=== PATIENT | male | born 1960 | race Caucasian/White ===

== ENCOUNTER 2017-10-18 14:53 | Outpatient (RCR) | payer BC ==
[~2017-10-18 14:53] MED LIST: ADVIL PO; CELEBREX200 MG PO; GABAPENTIN300 MG PO; LANTUS100 UNIT/1 PO; LISINOPRIL10 MG PO; SIMVASTATIN20 MG PO; SIMVASTATIN40 MG PO; [UNRECOGNIZED DRUG - OTHER] PO
== END 2017-10-30 ==
LOC: PT 14:53
PROVIDERS: ATTEND Neurological Surgery
DX: M51.17 Intervertebral disc disorders with radiculopathy, lumbosacral region (principal); M62.81 Muscle weakness (generalized)

== ENCOUNTER 2018-12-30 20:07 | Observation (INO) | payer BC ==
[~2018-12-30] VITALS: Ht 172.7 cm; Wt 97.5 kg
[2018-12-30 20:00] VITALS: BP 159/72
[2018-12-30 20:15] VITALS: BP 159/72
--- NOTE | 2018-12-30 20:15 | NUR ---
patient is a new admit that arrived via wheelchair. patient is alert and oriented. patient has been helped into the bed. bed is in lowest position and call alberto is within reach. will continue to monitor patient.
[2018-12-31] VITALS (8 sets, daily range): BP systolic 121–182; BP diastolic 59–84
[2018-12-31] MEDS ORDERED: METFORMIN HCL500 MG PO (00:34)
[2018-12-31] MEDS ORDERED: ATORVASTATIN CA20 MG PO (00:34)
[2018-12-31 06:26] LABS: BASOPHILS % 0.5 % (0.0-1.0); EOSINOPHILS # (AUTO) 0.2 (0.0-0.4); EOSINOPHILS % 3.1 % (0.0-6.0); HEMATOCRIT 46.1 % (38.2-49.6); HEMOGLOBIN 15.8 g/dL (14.0-18.0); LYMPHOCYTES # (AUTO) 2.3 (1.0-3.2); LYMPHOCYTES % 36.5 % (18.0-39.1); MEAN CORPUSCULAR HEMOGLOBIN 31.7 pg (28-32); MEAN CORPUSCULAR HGB CONC 34.3 g/dL (31-35); MEAN CORPUSCULAR VOLUME 92.4 fL (81-99); MONOCYTES # (AUTO) 0.5 (0.2-0.8); MONOCYTES % 8.3 % (4.4-11.3); NEUTROPHILS # (AUTO) 3.3 (2.1-6.9); NEUTROPHILS % 51.4 % (38.7-80.0); PLATELET COUNT 234 x10e3/uL (140-360); RED BLOOD COUNT 4.99 x10e6/uL (4.3-5.7); RED CELL DISTRIBUTION WIDTH 13.2 % (11.7-14.4)
--- NOTE | 2018-12-31 06:26 | NUR ---
Dr Blayne Moss has been notified of consultation via voice message. Awaiting call back from physician.
[2018-12-31 06:52] LABS: ALANINE AMINOTRANSFERASE 26 IU/L (0-55); ALBUMIN 3.7 g/dL (3.5-5.0); ALBUMIN/GLOBULIN RATIO 1.4 (0.8-2.0); ALKALINE PHOSPHATASE 82 IU/L (40-150); ANION GAP 9.9 mmol/L (8-16); BLOOD UREA NITROGEN 16 mg/dL (7-26); BUN/CREATININE RATIO 20 (6-25); CALCIUM 8.6 mg/dL (8.4-10.2); CARBON DIOXIDE 27 mmol/L (22-29); CHLORIDE 105 mmol/L (98-107); CREATININE, SERUM 0.79 mg/dL (0.72-1.25); EST GLOMERULAR FILTRATION RATE > 60 ML/MIN (60-); GLUCOSE 181 mg/dL (74-118); POTASSIUM 3.9 mmol/L (3.5-5.1); SODIUM 138 mmol/L (136-145)
--- NOTE | 2018-12-31 06:54 | NUR ---
report given to day nurse. patient is resting comfortably in bed. bed is in lowest position and call alberto is within reach.
--- NOTE | 2018-12-31 07:50 | NUR ---
patient resting in bed, alert with no distress, denies any pain, call light in reach
[2018-12-31] MEDS: LISINOPRIL 10 MG TAB PO SCH (08:04)
[2018-12-31] MEDS: GABAPENTIN 300 MG CAP PO SCH ×2 (08:04→16:34)
[2018-12-31] MEDS: INSULIN GLARGINE 100 UNITS/ML VIAL SQ SCH (08:22)
--- NOTE | 2018-12-31 08:50 | NUR ---
Recvd call from Dr Cisneros that "She is out of town till Tuesday' Notified Catina LOBO when she was here for rounds.
[2018-12-31] MEDS ORDERED: NICOTINE 14 MG/EA PATCH TOP PRN (09:30)
[2018-12-31] MEDS ORDERED: ACETAMINOPHEN 325 MG TAB PO PRN (09:30)
[2018-12-31] MEDS ORDERED: ONDANSETRON HCL INJ 2MG/ML 2ML 2 MG/ML VIAL IV PRN (09:30)
[2018-12-31] MEDS ORDERED: GADOBENATE DIMEGLUMINE 0 ML IV ONE (09:50)
[2018-12-31] MEDS ORDERED: AMLODIPINE BESYLATE 10 MG TAB PO SCH (10:00)
[2018-12-31] MEDS ORDERED: LORAZEPAM INJ 2 MG/ML VIAL IV PRN (10:30)
--- NOTE | 2018-12-31 10:35 | NUR ---
patient in MRI unit, anxious . claustrophobic, new order recvd from PA of Dr Brice ativan 1mg one dose, dose given
--- NOTE | 2018-12-31 11:17 | NUR ---
patient still anxious, could not able to get MRI, paged Catina [employer] TECH[employer], new order recvd to give another dose of ativan 1mg IV, DOSE given
[2018-12-31] MEDS ORDERED: LORAZEPAM INJ 2 MG/ML VIAL IV ONE (11:30)
--- NOTE | 2018-12-31 14:11 | NUR ---
Patient walking in hallway, not in any distress
[2018-12-31] MEDS: HYDRALAZINE HCL 20 MG/ML VIAL IV PRN (15:23)
[2018-12-31] MEDS: FAMOTIDINE 20 MG TAB PO SCH (16:34)
[2018-12-31] MEDS: INSULIN LISPRO 100 UNIT/1 ML 3ML VIAL SQ SCH ×2 (16:50→20:29)
[2018-12-31] MEDS ORDERED: METFORMIN HCL 500 MG TAB PO SCH (17:00)
--- NOTE | 2018-12-31 18:04 | Diagnostic Imaging Report ---
EXAMINATION: MRI of the brain without contrast. HISTORY: Upper and lower extremity weakness since the day before, patient fell off a couple of times, abnormal head CT. COMPARISON: Outside head CT on 12/30/2018 TECHNIQUE: Sagittal T2; axial DWI, T2, FLAIR, T1-IR. IMAGE QUALITY: Artifact from patient's motion severally limits evaluation of most of the sequences. FINDINGS: Parenchyma: 1. No acute infarct. 2. Poorly visualized periventricular and subcortical white matter FLAIR hyperintense foci. 3. Possible chronic lacunar infarct in the left posterior putamen. 4. No large mass, hemorrhage, or acute infarcts. Skull: Unremarkable. Vessels: Cannot be evaluated Extra-axial spaces: Grossly normal extra-axial fluid collections Brain volume: Within normal limits for age. Ventricles: No hydrocephalus or displacement. Foramen magnum: Unremarkable. Paranasal / mastoid sinuses: No significant inflammatory disease. IMPRESSION: 1. Very suboptimal evaluation due to patient's motion. Grossly no mass, acute infarct, hemorrhage or hydrocephalus. 2. Few nonspecific periventricular and juxtacortical white matter FLAIR hyperintense foci, consider repeat study when patient conditions allow to the better evaluate. Signed by: Dr. Beverley Garcia M.D. on 12/31/2018 6:01 PM
--- NOTE | 2018-12-31 18:26 | NUR ---
patient resting in bed, alert with no distress, call light in reach
--- NOTE | 2018-12-31 19:00 | NUR ---
received report from day nurse. patient is resting in bed. bed is in lowest position and call alberto is within reach. will continue to monitor patient.
[2018-12-31] MEDS: ATORVASTATIN 20 MG TAB PO SCH (20:33)
[2018-12-31] MEDS ORDERED: SIMVASTATIN 40 MG TAB PO SCH (21:00)
[2019-01-01] VITALS (10 sets, daily range): BP systolic 153–176; BP diastolic 68–84
[2019-01-01 03:06] LABS: BASOPHILS % 0.5 % (0.0-1.0); EOSINOPHILS # (AUTO) 0.2 (0.0-0.4); EOSINOPHILS % 2.5 % (0.0-6.0); HEMATOCRIT 49.6 % (38.2-49.6); HEMOGLOBIN 17.3 g/dL (14.0-18.0); LYMPHOCYTES # (AUTO) 2.6 (1.0-3.2); LYMPHOCYTES % 35.5 % (18.0-39.1); MEAN CORPUSCULAR HEMOGLOBIN 31.9 pg (28-32); MEAN CORPUSCULAR HGB CONC 34.9 g/dL (31-35); MEAN CORPUSCULAR VOLUME 91.3 fL (81-99); MONOCYTES # (AUTO) 0.6 (0.2-0.8); MONOCYTES % 7.7 % (4.4-11.3); NEUTROPHILS # (AUTO) 3.9 (2.1-6.9); NEUTROPHILS % 53.5 % (38.7-80.0); PLATELET COUNT 224 x10e3/uL (140-360); RED BLOOD COUNT 5.43 x10e6/uL (4.3-5.7); RED CELL DISTRIBUTION WIDTH 13.1 % (11.7-14.4)
[2019-01-01 03:24] LABS: ANION GAP 10.9 mmol/L (8-16); BLOOD UREA NITROGEN 13 mg/dL (7-26); BUN/CREATININE RATIO 19 (6-25); CALCIUM 9.1 mg/dL (8.4-10.2); CARBON DIOXIDE 26 mmol/L (22-29); CHLORIDE 102 mmol/L (98-107); CHOL/HDL RATIO 3.8 (3.9-4.7); CREATININE, SERUM 0.69 mg/dL (0.72-1.25); EST GLOMERULAR FILTRATION RATE > 60 ML/MIN (60-); GLUCOSE 108 mg/dL (74-118); POTASSIUM 3.9 mmol/L (3.5-5.1); SODIUM 135 mmol/L (136-145)
[2019-01-01 03:35] LABS: B-TYPE NATRIURETIC PEPTIDE2 27.7 pg/mL (0-100)
[2019-01-01 03:46] LABS: FREE T4 (FREE THYROXINE) 0.79 ng/dL (0.9-1.8)
--- NOTE | 2019-01-01 05:40 | NUR ---
patient's 20 gauge IV is no longer patent. a new 22gauge iv has been started on patient's left hand. iv is patent and patient tolerated procedure well.
[2019-01-01] MEDS: HYDRALAZINE HCL 20 MG/ML VIAL IV PRN ×3 (06:15→17:00)
--- NOTE | 2019-01-01 06:15 | NUR ---
patients blood pressure is 168/83. will medicate patient with as needed blood pressure medication. will continue to monitor patient's blood pressure.
--- NOTE | 2019-01-01 07:11 | NUR ---
report given to day nurse. patient is resting comfortably in bed. bed is in lowest position and call alberto is within reach.
[2019-01-01] MEDS ORDERED: NIFEDIPINE ER30 M1 PO (08:07)
[2019-01-01] MEDS: FAMOTIDINE 20 MG TAB PO SCH ×2 (08:51→17:00)
[2019-01-01] MEDS: GABAPENTIN 300 MG CAP PO SCH ×2 (08:51→17:00)
[2019-01-01] MEDS: LISINOPRIL 10 MG TAB PO SCH (08:51)
[2019-01-01] MEDS: INSULIN GLARGINE 100 UNITS/ML VIAL SQ SCH (08:55)
[2019-01-01] MEDS: INSULIN LISPRO 100 UNIT/1 ML 3ML VIAL SQ SCH ×4 (08:56→20:58)
[2019-01-01] MEDS ORDERED: NIFEDIPINE CR 30 MG TAB PO SCH (09:00)
[2019-01-01] MEDS ORDERED: AMLODIPINE BESYLATE 10 MG TAB PO SCH (09:00)
--- NOTE | 2019-01-01 14:37 | NUR ---
spoke with fuel retrofitting technician kenny regarding elevated bp despite prn hydralazine administration. fuel retrofitting technician cancelled dc, new orders received
[2019-01-01] MEDS ORDERED: HYDROCHLOROTHIAZIDE 25 MG TAB PO NR (15:00)
[2019-01-01] MEDS: LORAZEPAM 0.5 MG TAB PO PRN (17:00)
[2019-01-01] MEDS ORDERED: ACETAMIN/BUTALBITAL/CAFFEINE TAB PO PRN (21:00)
[2019-01-01] MEDS: HYDRALAZINE HCL 25 MG TAB PO SCH (21:08)
[2019-01-01] MEDS: ATORVASTATIN 20 MG TAB PO SCH (21:09)
[2019-01-02] VITALS (7 sets, daily range): BP systolic 137–176; BP diastolic 59–77
[2019-01-02] MEDS: LORAZEPAM 0.5 MG TAB PO PRN ×2 (03:54→11:32)
--- NOTE | 2019-01-02 07:20 | NUR ---
Walking rounds done. Patient is resting in bed in NAD. Patient voiced he is ready to go home today. POC discussed. Patient instructed to call for assistance as needed and verbalized understanding. Call alberto within reach.
[2019-01-02] MEDS ORDERED: ATIVAN0.5 MG PO (08:42)
[2019-01-02] MEDS ORDERED: LISINOPRIL20 MG PO (08:42)
[2019-01-02] MEDS ORDERED: ESIDRIX25 MG PO (08:42)
[2019-01-02] MEDS ORDERED: HYDRALAZINE HCL25 MG PO (08:42)
[2019-01-02] MEDS ORDERED: NIFEDIPINE ER30 M1 PO (08:42)
[2019-01-02] MEDS: FAMOTIDINE 20 MG TAB PO SCH ×2 (08:57→17:09)
[2019-01-02] MEDS: INSULIN LISPRO 100 UNIT/1 ML 3ML VIAL SQ SCH ×3 (08:58→16:30)
[2019-01-02] MEDS: INSULIN GLARGINE 100 UNITS/ML VIAL SQ SCH (08:59)
[2019-01-02] MEDS: GABAPENTIN 300 MG CAP PO SCH ×2 (09:00→17:09)
[2019-01-02] MEDS ORDERED: LISINOPRIL 20 MG TAB PO SCH (09:00)
[2019-01-02] MEDS: HYDRALAZINE HCL 25 MG TAB PO SCH ×2 (09:00→15:13)
[2019-01-02] MEDS ORDERED: HYDROCHLOROTHIAZIDE 25 MG TAB PO SCH (09:00)
[2019-01-02] MEDS ORDERED: NIFEDIPINE CR 30 MG TAB PO SCH (09:00)
[2019-01-02] MEDS ORDERED: LISINOPRIL 10 MG TAB PO SCH (09:00)
--- NOTE | 2019-01-02 10:22 | NUR ---
SOCIAL WORK INITIAL ASSESSMENT Aviation Engineer to bedside to discuss plan of care with patient/family. CM/SW role and care transitions discussed. Anticipated discharge plan discussed along with duration of care. CM/SW discussed patients right to make decisions in care. CM/SW work hours given. 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 Name and number was also written on the patients whiteboard. Patient verbalized understanding of discussion. CM will follow-up with ongoing discharge and transition of care needs.
--- NOTE | 2019-01-02 17:55 | NUR ---
Patient discharged home with written instructions and prescriptions. Pt verbalized understanding. Patient wheeled to personal vehicle in stable condition with spouse at side.
--- NOTE | 2019-01-03 03:18 | Discharge Summary ---
ADMISSION DIAGNOSES: Dizziness, type 2 diabetes, hypertension, hyperlipidemia, and tobacco use. DISCHARGE DIAGNOSES: Dizziness, type 2 diabetes, hypertension, hyperlipidemia, and tobacco use. HISTORY: The patient has a history of type 2 diabetes, chronic back pain, and hypertension. SURGICAL HISTORY: Right knee surgery, left elbow surgery, bilateral carpal tunnel release. FAMILY HISTORY: The patient's dad and sister have diabetes. SOCIAL HISTORY: The patient admits to smoking 1 to 1-1/2 packs of cigarettes per day. He denies alcohol and illicit drug use. HOSPITAL COURSE: A 58-year-old male complains of feeling weird, dizziness, and bilateral lower extremity weakness that began yesterday while at [employer]. The symptoms lasted about an hour and resolved spontaneously. Nothing improved or worsened his symptoms. His blood pressure in the morning was about 148/82. He denies shortness of breath, palpitations, or syncope. The patient initially went to an outpatient ER and had a CAT scan that showed posterior left frontal lobe hypodense lesion. He then had an MRI that showed very suboptimal evaluation due to the patient's motion, grossly no mass, acute infarct, hemorrhage, or hydrocephalus. The patient's echo had an EF of about 50%. Carotid Dopplers were negative. The patient remained hypertensive despite blood pressure medicine, so he had to stay in the hospital until it was well controlled. At the time of discharge, the patient was given a script for hydralazine, hydrochlorothiazide, lisinopril, lorazepam, and nifedipine. The patient will continue home medicines. He will follow up with primary care in 1-2 weeks. The patient understands discharge instructions and agrees to plan. Vital signs stable, the patient afebrile. Dictated by Catina Heart NP MD ENID Vasquez/BERT /[id number]
== END 2019-01-02 17:35 | disposition home or self-care (01) ==
LOC: IMCU 20:07
PROVIDERS: ADMIT Internal Medicine; ATTEND Internal Medicine
DX: R42 Dizziness and giddiness (principal); E11.9 Type 2 diabetes mellitus without complications; I10 Essential (primary) hypertension; E78.5 Hyperlipidemia, unspecified; Z72.0 Tobacco use; Z83.3 Family history of diabetes mellitus; Z79.4 Long term (current) use of insulin
CPT/HCPCS: 36415 ×3; 70551; 80048; 80053; 80061; 82948 ×3; 83036; 83735; 83880; 84439; 84443; 85025 ×2; 93306; 93880; 97139; G0378 ×4; J0360 ×2; J1815; J2060

== ENCOUNTER 2019-01-15 13:04 | Observation (INO) | payer BC ==
[~2019-01-15] VITALS: Ht 167.6 cm; Wt 89.8 kg
[~2019-01-15 13:04] MED LIST changes: +ATIVAN0.5 MG PO; +ATORVASTATIN CA20 MG PO; +ESIDRIX25 MG PO; +HYDRALAZINE HCL25 MG PO; +LISINOPRIL20 MG PO; +METFORMIN HCL500 MG PO; +NIFEDIPINE ER30 M1 PO
[2019-01-15] MEDS ORDERED: SODIUM CHLORIDE 0.9% 1000ML 1,000 ML IV STA (13:31)
[2019-01-15 13:41] LABS: BASOPHILS # (AUTO) 0.1 (0.0-0.1); BASOPHILS % 0.7 % (0.0-1.0); EOSINOPHILS # (AUTO) 0.4 (0.0-0.4); EOSINOPHILS % 4.2 % (0.0-6.0); HEMATOCRIT 42.7 % (38.2-49.6); HEMOGLOBIN 15.2 g/dL (14.0-18.0); LYMPHOCYTES # (AUTO) 3.6 (1.0-3.2); LYMPHOCYTES % 39.2 % (18.0-39.1); MEAN CORPUSCULAR HEMOGLOBIN 31.9 pg (28-32); MEAN CORPUSCULAR HGB CONC 35.6 g/dL (31-35); MEAN CORPUSCULAR VOLUME 89.5 fL (81-99); MONOCYTES # (AUTO) 0.6 (0.2-0.8); MONOCYTES % 6.4 % (4.4-11.3); NEUTROPHILS # (AUTO) 4.5 (2.1-6.9); PLATELET COUNT 287 x10e3/uL (140-360); RED BLOOD COUNT 4.77 x10e6/uL (4.3-5.7); RED CELL DISTRIBUTION WIDTH 12.4 % (11.7-14.4)
--- NOTE | 2019-01-15 13:43 | NUR ---
PATIENT STATED HE FELT FINE YESTERDAY. DID YARD WORK AND PUT OUT PESTICIDES YESTERDAY. TODAY HE CONTINUALLY STATES, "I JUST DONT FEEL RIGHT"
[2019-01-15 13:45] LABS: INR 0.92; PROTHROMBIN TIME 12.9 seconds (11.9-14.5)
[2019-01-15 13:46] LABS: PARTIAL THROMBOPLASTIN TIME 25.3 seconds (23.8-35.5)
[2019-01-15 13:52] LABS: ALANINE AMINOTRANSFERASE 39 IU/L (0-55); ALBUMIN 3.9 g/dL (3.5-5.0); ALBUMIN/GLOBULIN RATIO 1.3 (0.8-2.0); ALKALINE PHOSPHATASE 91 IU/L (40-150); ANION GAP 15.9 mmol/L (8-16); BLOOD UREA NITROGEN 20 mg/dL (7-26); BUN/CREATININE RATIO 21 (6-25); CALCIUM 8.9 mg/dL (8.4-10.2); CARBON DIOXIDE 27 mmol/L (22-29); CHLORIDE 98 mmol/L (98-107); CREATINE KINASE 637 IU/L (30-200); CREATININE, SERUM 0.94 mg/dL (0.72-1.25); EST GLOMERULAR FILTRATION RATE > 60 ML/MIN (60-); GLUCOSE 175 mg/dL (74-118); POTASSIUM 3.9 mmol/L (3.5-5.1); SODIUM 137 mmol/L (136-145)
--- NOTE | 2019-01-15 14:11 | Diagnostic Imaging Report ---
History:AMS Comparison studies:MRI brain 12/31/2018 Technique: Axial images were obtained from the skull base to the vertex. Coronal and sagittal images reconstructed from the axial data. Intravenous contrast: None Dose modulation, iterative reconstruction, and/or weight based adjustment of the mA/kV was utilized to reduce the radiation dose to as low as reasonably achievable. Findings: Scalp/skull: No abnormalities. Extra-axial spaces: No masses. No fluid collections. Brain sulci: Age-appropriate. Ventricles: Age-appropriate. No hydrocephalus. Parenchyma: Scattered small hypodensities in the supratentorial white matter are small vessel ischemic changes. No masses, hemorrhage, acute or chronic cortical vascular insults. Sellar/suprasellar region: No abnormalities. Craniocervical junction: Patent foramen magnum. No Chiari one malformation. Incidental findings: Atherosclerotic calcifications in the carotid siphons . Impression: No acute abnormalities. Mild supratentorial white matter small vessel ischemic changes. Signed by: DR Nomi Selby M.D. on 01/15/2019 2:07 PM
--- NOTE | 2019-01-15 14:38 | Diagnostic Imaging Report ---
EXAM: CHEST SINGLE (PORTABLE), AP Portable DATE: 01/15/2019 Time stamp on exam: 1:52 PM INDICATION: Weakness COMPARISON: None FINDINGS: LINES/TUBES: None LUNGS: No consolidations or edema. PLEURA: No effusions or pneumothorax. HEART AND MEDIASTINUM: Normal size and contour. BONES AND SOFT TISSUES: No acute findings. Mild degenerative changes of the spine. IMPRESSION: No acute thoracic abnormality. Signed by: Dr. Kushal Peck DO on 01/15/2019 2:34 PM
[2019-01-15] MEDS ORDERED: ACETAMINOPHEN 325 MG TAB PO ONE (15:30)
[2019-01-15] MEDS ORDERED: LORAZEPAM1 MG PO (15:35)
[2019-01-15] MEDS ORDERED: HYDRALAZINE HCL25 MG PO (15:35)
[2019-01-15] MEDS ORDERED: ASPIRIN 325 MG TAB PO ONE (16:30)
--- OUTSIDE RECORDS SUMMARY | 2019-01-15 16:44 | XMS REPORT ---
Author Author [facility] Address Unknown Phone Unavailable Care Team Providers Care Coil Rewind Machine Operator Name Role Phone Crow FLORES Unavailable Unavailable KELLE MUELLER Unavailable Unavailable MANUELA GARCIA Unavailable Unavailable Problems This patient has no known problems. Allergies, Adverse Reactions, Alerts This patient has no known allergies or adverse reactions. Medications This patient has no known medications. Results Test Description Test Time Test Comments Text Results Atomic Results Result Comments CHEST SINGLE (PORTABLE) 2019-01-15 14:34:00 [place] [address] Patient Name: RUSTY ESCOBAR MR #: [id number] : 1960 Age/Sex: 58/M Req #: [id number] Adm Physician: Ordered by: INDERJIT FLORES MD Report #: [id number] Location: ER Room/Bed: Procedure: [id number] DX/CHEST SINGLE (PORTABLE) Exam Date: 01/15/19 Exam Time: 1340 REPORT STATUS: Signed EXAM: CHEST SINGLE (PORTABLE), AP Portable DATE: 01/15/2019 Time stamp on exam: 1:52 PM INDICATION: Weakness COMPARISON: None FINDINGS: LINES/TUBES: None LUNGS: No consolidations or edema. PLEURA: No effusions or pneumothorax. HEART AND MEDIASTINUM: Normal size and contour. BONES AND SOFT TISSUES: No acute findings. Mild degenerative changes of the spine. IMPRESSION: No acute thoracic abnormality. Signed by: Dr. Vishnu Peck DO on 01/15/2019 2:34 PM Dictated By: VISHNU PECK DO 1434 Transcribed By: MEGAN on 01/15/19 1434 COPY TO: INDERJIT FLORES MD CT BRAIN WO 2019-01-15 14:04:00 [place] [address] Patient Name: RUSTY ESCOBAR MR #: [id number] : 1960 Age/Sex: 58/M Req #: [id number] Adm Physician: Ordered by: INDERJIT FLORES MD Report #: [id number] Location: ER Room/Bed: Procedure: [id number] CT/CT BRAIN WO Exam Date: 01/15/19 Exam Time: 1300 REPORT STATUS: Signed History:AMS Comparison studies:MRI brain 12/31/2018 Technique: Axial images were obtained from the skull base to the vertex. Coronal and sagittal images reconstructed from the axial data. Intravenous contrast: None Dose modulation, iterative reconstruction, and/or weight based adjustment of the mA/kV was utilized to reduce the radiation dose to as low as reasonably achievable. Findings: Scalp/skull: No abnormalities. Extra-axial spaces: No masses. No fluid collections. Brain sulci: Age-appropriate. Ventricles: Age-appropriate. No hydrocephalus. Parenchyma: Scattered small hypodensities in the supratentorial white matter are small vessel ischemic changes. No masses, hemorrhage, acute or chronic cortical vascular insults. Sellar/suprasellar region: No abnormalities. Craniocervical junction: Patent foramen magnum. No Chiari one malformation. Incidental findings: Atherosclerotic calcifications in the carotid siphons . Impression: No acute abnormalities. Mild supratentorial white matter small vessel ischemic changes. Signed by: DR Nomi Selby M.D. on 01/15/2019 2:07 PM Dictated By: NOMI NOEL MD 06 Transcribed By: MEGAN on 01/15/191406 COPY TO: INDERJIT FLORES MD MRI BRAIN WO 2018-12-31 17:54:00 [place] [address] Patient Name: RUSTY REARDON MR #: [id number] : 1960 Age/Sex: 58/M Req #: [id number] Adm Physician: KELLE MUELLER MD Ordered by: KELLE MUELLER MD Report #: [id number] Location: [facility] Room/Bed: [place] [address] Procedure: [id number] MRI/MRI BRAIN WO Exam Date: Exam Time: REPORT STATUS: Signed EXAMINATION: MRI of the brain without contrast. HISTORY: Upper and lower extremity weakness since the day before, patient fell off a couple of times, abnormal head CT. COMPARISON: Outside head CT on 12/30/2018 TECHNIQUE: Sagittal T2; axial DWI, T2, FLAIR, T1-IR. IMAGE QUALITY: Artifact from patient's motion severally limits evaluation of most of the sequences. FINDINGS: Parenchyma: 1. No acute infarct. 2. Poorly visualized periventricular and subcortical white matter FLAIR hyperintense foci. 3. Possible chronic lacunar infarct in the left posterior putamen. 4. No large mass, hemorrhage, or acute infarcts. Skull: Unremarkable. Vessels: Cannot be evaluated Extra-axial spaces: Grossly normal extra- axial fluid collections Brain volume: Within normal limits for age. Ventricles: No hydrocephalus or displacement. Foramen magnum: Unremarkable. Paranasal / mastoid sinuses: No significant inflammatory disease. IMPRESSION: 1. Very suboptimal evaluation due to patient's motion. Grossly no mass, acute infarct, hemorrhage or hydrocephalus. 2. Few nonspecific periventricular and juxtacortical white matter FLAIR hyperintense foci, consider repeat study when patient conditions allow to the better evaluate. Signed by: Dr. Guera Garcia M.D. on 12/31/2018 6:01 PM Dictated By: GUERA GARCIA MD 00 Transcribed By: MEGAN on 12/31/181800 COPY TO: KELLE MUELLER MD MRI SPINE LUMBAR WO [place] [address] Patient Name: RUSTY ESCOBAR MR #: [id number] : 1960 Age/Sex: 57/M Req #: [id number] Adm Physician: Ordered by: MANUELA GARCIA MD Report #: [id number] Location: MRI Room/Bed: Procedure: [id number] MRI/MRI SPINE LUMBAR WO Exam Date: Exam Time: REPORT STATUS: Signed Exam: Lumbar spine MRI without IV contrast History: Low back and right leg pain. Comparison studies: None Technique: Sagittal and axial T2 , sagittal T1 and IR, axial spin density oblique. Coronal T2. Intravenous contrast: None Findings: Number of lumbar vertebral bodies: 5. Alignment: Normal lordosis. No scoliosis. Soft tissues: No T2 hyperintense inflammatory changes. Paraspinal muscles: No signal abnormalities. Well- preserved. No atrophic changes Lower thoracic cord: Normal in signal and morphology. The tip of the conus lies at L1-L2 Cauda equina: No masses. No arachnoiditis. Vertebrae: Incidental T1 hyperintense L3 vertebral body hemangioma. No compression fractures, infection or neoplasm. Degenerative changes: L1-L2: No abnormalities L2-L3: No abnormalities L3-L4: Mildly degenerated disc with loss of disc height and T2 disc signal. Disc bulge asymmetric to the left, thickened ligamenta flava and mild facet arthrosis with moderate left and mild right foraminal stenosis and mild canal stenosis. Likely small inferiorly migrated left central disc extrusion which does does not result in nerve root impingement or contribute to canal stenosis. L4-L5: Disc bulge asymmetric to the left with small left foraminal disc protrusion and facet arthrosis result in moderate left foraminal stenosis, mild right foraminal stenosis. No significant canal stenosis. L5-S1: Disc bulge and severe right and severe right and moderate left facet arthrosis result in severe right foraminal stenosis and mild left foraminal stenosis. IMPRESSION: 1. Severe right L5-S1 degenerative foraminal stenosis. 2. Moderate degenerative foraminal stenosis on the left at L3-L4 and at L4-L5. Small left foraminal disc protrusion at L4- L5 contributes to foraminal stenosis. 3. Facet arthrosis from L3 to S1, worse/severe on the right at L5-S1. 4. Mild degenerative canal stenosis at L3-L4 and L4-L5. Signed by: Dr. Kendrick Townsend M.D. on 08/26/2017 7:06 PM Dictated By: KENDRICK TOWNSEND MD 05 Transcribed By: MEGAN on 08/26/171905 COPY TO: MANUELA GARCIA MD
--- NOTE | 2019-01-15 19:19 | NUR ---
REPORT TO JIMENEZ Boykin
--- NOTE | 2019-01-15 19:58 | NUR ---
PER DR AMI LOBO [facility], CONTINUE ATIVAN 1MG TID, ESIDRIX 25MG DAILY, GABAPENTIN 600MG QID, LISINOPRIL 20MG DAILY, PROCARDIA XL 60MG DAILY, HYDRALAZINE 10MG Q3H IV PRN WITH SBP GREATER THAN 150, NICODERM 21MG PRN DAILY, HYDRALAZINE 25MG TID. WILL CONTINUE TO MONITOR.
[2019-01-15 20:17] VITALS: BP 145/67
--- NOTE | 2019-01-15 20:32 | NUR ---
PT ARRIVED ON THE UNIT AT 2031. PT IS A&OX3. RESPIRATION IS EVEN AND UNLABORED, NO DISTRESS NOTED. BED IN THE LOWEST POSITION, LOCKED, AND CALL LIGHT WITHIN REACH. ADMISSION AND HEAD TO TOE ASSESSMENT COMPLETE. WILL CONTINUE TO MONITOR.
[2019-01-15] MEDS ORDERED: NICOTINE 21 MG/EA PATCH TOP PRN (22:15)
[2019-01-15] MEDS ORDERED: HYDRALAZINE HCL 20 MG/ML VIAL IV PRN (22:15)
[2019-01-15] MEDS: LORAZEPAM 1 MG TAB PO SCH (22:28)
[2019-01-15] MEDS: GABAPENTIN 300 MG CAP PO SCH (22:28)
[2019-01-16] VITALS (10 sets, daily range): BP systolic 114–157; BP diastolic 54–67
[2019-01-16] MEDS ORDERED: PNEUMOCOCCAL VACCINE POLYVALENT 23 MCG/0.5 ML VIAL IM SCH ×2 (07:13→08:00)
--- NOTE | 2019-01-16 07:20 | NUR ---
PATIENT IN STABLE CONDITION WITH NO S/S OF RESPIRATORY DISTRESS- PATIENT DENIES ANY PAIN. CALL LIGHT IS WITHIN REACH, PATIENT INSTRUCTED TO CALL FOR ASSISTANCE NEEDED.
[2019-01-16] MEDS ORDERED: DEXTROSE 50% SYRINGE 50 ML IV PRN ×2 (07:45→11:45)
[2019-01-16] MEDS ORDERED: INSULIN REGULAR, HUMAN 100 UNIT/1 ML 3ML VIAL SQ SCH (08:00)
[2019-01-16] MEDS: HYDRALAZINE HCL 25 MG TAB PO SCH ×3 (08:40→21:00)
[2019-01-16] MEDS: HYDROCHLOROTHIAZIDE 25 MG TAB PO SCH (08:41)
[2019-01-16] MEDS: GABAPENTIN 300 MG CAP PO SCH ×4 (08:41→21:20)
[2019-01-16] MEDS: NIFEDIPINE CR 30 MG TAB PO SCH (08:41)
[2019-01-16] MEDS: LISINOPRIL 20 MG TAB PO SCH (08:41)
[2019-01-16] MEDS: LORAZEPAM 1 MG TAB PO SCH (08:41)
[2019-01-16] MEDS: ASPIRIN 325 MG TAB EC PO SCH (08:41)
--- NOTE | 2019-01-16 09:28 | NUR ---
PATIENT OFF THE UNIT PER WHEELCHAIR TO MRI- PATIENT IN STABLE CONDITION WITH NO S/S OF RESPIRATORY DISTRESS.
[2019-01-16] MEDS ORDERED: LORAZEPAM INJ 2 MG/ML VIAL IV ONE (09:45)
[2019-01-16] MEDS ORDERED: NICOTINE 7 MG PATCH TOP PRN (10:15)
--- NOTE | 2019-01-16 10:58 | Diagnostic Imaging Report ---
Examination: MRI BRAIN WITHOUT CONTRAST History: Slurred speech since yesterday. Comparison studies: Head CT performed January 15, 2019. Brain MRI performed December 31, 2018. Outside head CT performed December 30, 2018. Technique: Sagittal T2; axial DWI, FLAIR, GRE or SWI, T1, Coronal FLAIR. Intravenous contrast: None Findings: Scalp: No abnormal signal. No masses. Bone marrow: Normal in signal intensity. Brain volume: Adequate for age. No volume loss. Ventricles: Normal in size and configuration. No hydrocephalus. Extra-axial spaces: No abnormalities. Parenchyma: Again demonstrated are patchy and punctate areas of T2/FLAIR hyperintensity in the periventricular and subcortical white matter, nonspecific. A chronic lacunar infarct is again demonstrated in the posterior aspect of the left putamen. No masses, hemorrhage, acute or chronic vascular insults. Suprasellar and sellar region: No abnormalities. Craniocervical junction: No abnormalities. The foramen magnum is patent. No Chiari malformations. Vessels: Normal flow-voids in the arteries and sinuses. Additional findings:None. IMPRESSION: 1. No acute abnormalities, specifically, no acute infarct. 2. Mild chronic microvascular ischemic change. 3. Chronic left putaminal lacunar infarct. Signed by: Dr. Sia Hartman M.D. on 01/16/2019 10:54 AM
[2019-01-16] MEDS ORDERED: SODIUM CHLORIDE 0.9% 1000ML 1,000 ML IV SCH (11:45)
[2019-01-16] MEDS ORDERED: LORAZEPAM 1 MG TAB PO PRN ×2 (11:45→13:00)
[2019-01-16] MEDS: INSULIN LISPRO 100 UNIT/1 ML 3ML VIAL SQ SCH ×3 (12:30→21:00)
[2019-01-16] MEDS: INSULIN GLARGINE 100 UNITS/ML VIAL SQ SCH (12:34)
--- NOTE | 2019-01-16 13:16 | NUR ---
REPORT GIVEN TO OBS NURSE- PATIENT TRANSFERRED TO ROOM 176 PER WHEELCHAIR. PATIENT IN STABLE CONDITION WITH NO S/S OF RESPIRATORY DISTRESS.
--- NOTE | 2019-01-16 13:30 | NUR ---
PT ARRIVED TO OBS ALERT RESP EVEN AND UNLABORED AT THIS TIME NO DISTRESS NOTED , FA,NITA MEMBERS AT BEDSIDE, PT ORIENTED TO ROOM AND CALL LIGHT.
--- NOTE | 2019-01-16 14:20 | NUR ---
Visit made by the Spiritual Care Department Pastoral Visitor, Christine Martinez. PV provided pastoral presence, prayer, hospitality, and supportive listening. Pastoral Visitor informed pt/family of the scope of [employer] and availability. ANN MARIE SOLIS Sales Clerk Supervisor Spiritual Care Department O: [phone] Pager: [phone] ([phone] number calling from)
--- NOTE | 2019-01-16 16:10 | NUR ---
received report from letty in obs. awaiting for pt to arrive to floor
--- NOTE | 2019-01-16 16:51 | NUR ---
received pt to floor aa0x3. pt is in no s.s of distress. is at bedside. will continue to care for pt at this time, side railsx2, bed wheels locked, call light is within easy reach, instructed to call for assistance if needed
[2019-01-16] MEDS: CLONAZEPAM 0.5 MG TAB PO SCH (17:16)
--- NOTE | 2019-01-16 19:00 | NUR ---
REPORT TAKEN FROM AM RN.WALKING ROUNDS DONE.STABLE CONDITION.NO PAIN VOICED.
--- NOTE | 2019-01-16 20:03 | Consultation ---
DATE OF CONSULTATION: 01/16/2019 Psychiatric Consultation REASON FOR CONSULTATION: To evaluate the patient's anxiety. HISTORY OF PRESENT ILLNESS: The patient is a 58-year-old male, admitted to the hospital for TIA. Psychiatric consultation is called to evaluate the patient's mood. Upon evaluation today, the patient is found to be in dayroom. He is alert, awake, and oriented to situation. He appears to be calm. He states that he has been feeling more anxious lately after he suffered TIA a few weeks ago. The patient drove himself to the hospital today after he found out that his heart rate was elevated and forgetting to take his medications. The patient denies depression, but reports anxiety. He denies any suicidal or homicidal ideation. He denies any hallucination. He denies feeling hopeless or helpless. He denies any problems with sleep or appetite. The patient claims that he takes Ativan 0.5 mg p.r.n. in the past, but his primary care doctor recently increased it to 1 mg three times a day as needed, which helped him. PAST PSYCHIATRIC HISTORY: The patient denies past psychiatric history, although he has been anxious recently. He denies past suicide attempts, but admits to self-harm. He denies alcohol and drug use. FAMILY HISTORY: Denies. SOCIAL HISTORY: The patient said he lives with his . MENTAL STATUS EXAM: The patient is a middle-aged male. He is alert, awake, and oriented to situation. His mood is anxious. He denies any suicidal or homicidal ideation. He denies any hallucination. Thought process is concrete. Affect is congruent with mood. Insight and judgment are fair. Memory appears to be grossly intact. Psychomotor state is calm. CURRENT MEDICATIONS: 1. Insulin. 2. Neurontin 600 mg p.o. four times a day. 3. Pneumococcal vaccine. 4. Procardia. 5. Lisinopril. 6. Hydrochlorothiazide. 7. Aspirin. 8. Hydralazine. 9. Ativan 1 mg three times a day as needed. 10. Sodium chloride. 11. Dextrose. 12. Nicotine. 13. Simvastatin. LABORATORY DATA: Current labs: WBC 9.10, RBC 4.77, hemoglobin 15.2, hematocrit 42.7, platelets 287. Sodium 127, potassium 3.9, chloride 98, CO2 is 27, BUN 20, creatinine 0.94. AST 33, ALT 39. ASSESSMENT: Generalized anxiety disorder, history of depression, history of alcohol use/abuse. PLAN: 1. Continue with Neurontin 600 mg p.o. four times a day. 2. Add Klonopin 0.5 mg p.o. twice a day. 3. Reduce Ativan to 0.5 mg p.o. four times a day as needed. 4. Add Zoloft 50 mg p.o. daily. 5. Monitor for mood. 6. Supportive therapy. Thank you for this consultation. We will continue seeing the patient during his hospitalization. Dictated by Brissa Mejía PA-C Rohit Sahni MD QTV/MODL /[id number]
[2019-01-16] MEDS ORDERED: SIMVASTATIN 40 MG TAB PO SCH (21:00)
[2019-01-17] VITALS: BP 131/61
--- NOTE | 2019-01-17 01:22 | NUR ---
NO PAIN VOICED.NO RESP.DISTRESS.AAOX4.AMBULATES.VOIDED.BED LOCKED AND IN LOWEST POSITION.PHONE AND CALL LIGHT WITHIN REACH.INSTRUCTED TO CALL FOR ASSISTANCE NEEDED.
--- NOTE | 2019-01-17 03:15 | NUR ---
BLOOD DRAWN FROM L.HAND WITH SCALP VEIN AND SENT TO THE LAB .PT TOLERATED WELL.
[2019-01-17 03:46] LABS: BASOPHILS % 0.4 % (0.0-1.0); EOSINOPHILS # (AUTO) 0.3 (0.0-0.4); EOSINOPHILS % 3.6 % (0.0-6.0); HEMATOCRIT 46.2 % (38.2-49.6); HEMOGLOBIN 16.2 g/dL (14.0-18.0); LYMPHOCYTES # (AUTO) 2.3 (1.0-3.2); LYMPHOCYTES % 25.9 % (18.0-39.1); MEAN CORPUSCULAR HEMOGLOBIN 31.8 pg (28-32); MEAN CORPUSCULAR HGB CONC 35.1 g/dL (31-35); MEAN CORPUSCULAR VOLUME 90.6 fL (81-99); MONOCYTES # (AUTO) 0.6 (0.2-0.8); MONOCYTES % 6.7 % (4.4-11.3); NEUTROPHILS # (AUTO) 5.6 (2.1-6.9); NEUTROPHILS % 63.2 % (38.7-80.0); PLATELET COUNT 257 x10e3/uL (140-360); RED CELL DISTRIBUTION WIDTH 12.3 % (11.7-14.4)
[2019-01-17 04:00] VITALS: BP 126/62
[2019-01-17 04:01] LABS: CREATINE KINASE 209 IU/L (30-200)
[2019-01-17 04:02] LABS: ANION GAP 9.8 mmol/L (8-16); BLOOD UREA NITROGEN 17 mg/dL (7-26); BUN/CREATININE RATIO 20 (6-25); CALCIUM 9.1 mg/dL (8.4-10.2); CARBON DIOXIDE 30 mmol/L (22-29); CHLORIDE 99 mmol/L (98-107); CHOL/HDL RATIO 3.2 (3.9-4.7); CHOLESTEROL 98 MD/DL (0-199); CREATININE, SERUM 0.83 mg/dL (0.72-1.25); EST GLOMERULAR FILTRATION RATE > 60 ML/MIN (60-); GLUCOSE 131 mg/dL (74-118); HDL CHOLESTEROL 31 MG/DL (40-60); LDL CHOLESTEROL 33 MG/DL (60-130); POTASSIUM 3.8 mmol/L (3.5-5.1); SODIUM 135 mmol/L (136-145); TRIGLYCERIDES 169 MG/DL (0-149)
[2019-01-17 04:24] LABS: THYROID STIMULATING HORMONE 3.964 uIU/mL (0.350-4.940)
[2019-01-17 04:28] LABS: B-TYPE NATRIURETIC PEPTIDE2 < 10.0 pg/mL (0-100)
--- NOTE | 2019-01-17 07:10 | NUR ---
REPORT GIVEN TO THE ONCOMING RN.WALKING ROUNDS DONE.STABLE CONDITION.
[2019-01-17] MEDS ORDERED: CLONAZEPAM0.5 MG PO (07:34)
[2019-01-17] MEDS ORDERED: ATIVAN1 MG PO (07:34)
[2019-01-17] MEDS ORDERED: ZOLOFT50 MG PO (07:34)
[2019-01-17 08:01] VITALS: BP 129/62
[2019-01-17] MEDS: HYDROCHLOROTHIAZIDE 25 MG TAB PO SCH (08:28)
[2019-01-17] MEDS: CLONAZEPAM 0.5 MG TAB PO SCH (08:28)
[2019-01-17] MEDS: ASPIRIN 325 MG TAB EC PO SCH (08:28)
[2019-01-17] MEDS: GABAPENTIN 300 MG CAP PO SCH (08:28)
[2019-01-17] MEDS: HYDRALAZINE HCL 25 MG TAB PO SCH (08:28)
[2019-01-17] MEDS: NIFEDIPINE CR 30 MG TAB PO SCH (08:29)
[2019-01-17] MEDS: LISINOPRIL 20 MG TAB PO SCH (08:29)
[2019-01-17] MEDS: INSULIN LISPRO 100 UNIT/1 ML 3ML VIAL SQ SCH (08:29)
[2019-01-17] MEDS: INSULIN GLARGINE 100 UNITS/ML VIAL SQ SCH (08:30)
[2019-01-17] MEDS ORDERED: SERTRALINE HCL 50 MG TAB PO SCH (09:00)
[2019-01-17] MEDS ORDERED: INSULIN GLARGINE HUM REC ANLOG 40 UNIT PO SCH (09:00)
--- NOTE | 2019-01-17 10:03 | NUR ---
Received patient this morning, alert and responsive, rounds by CAR SCRUBBER for attending and reconciled discharge meds, prescriptions for discharge provided. VSS and no c/o pains
--- NOTE | 2019-01-17 10:04 | NUR ---
Patient discharged, VSS, tolerated all meds, provided with discharge summary and prescriptions, contacts for f/u appt. IV line removed and cath tip in place, dressing applied and patient released.
[2019-01-17 10:15] VITALS: BP 129/62
--- NOTE | 2019-01-18 07:34 | Discharge Summary ---
ADMISSION DIAGNOSES: Transient ischemic attack, hypertension, type 2 diabetes, hyperlipidemia, tobacco use, anxiety, elevated CK/CK-MB. DISCHARGE DIAGNOSES: Transient ischemic attack, hypertension, type 2 diabetes, hyperlipidemia, tobacco use, anxiety, elevated CK/CK-MB. Rule out transient ischemic attack, rule out cerebrovascular accident plus anxiety attack. HISTORY: The patient has a history of type 2 diabetes, hypertension, hyperlipidemia, tobacco use, and anxiety. SURGICAL HISTORY: Right knee surgery, left elbow surgery, and bilateral carpal tunnel release. FAMILY HISTORY: The patient's dad and sister had diabetes. SOCIAL HISTORY: The patient admits to tobacco use. He denies alcohol and illicit drug use. HOSPITAL COURSE: A 58-year-old male complains of feeling weird while on lunch from work. He usually goes home to eat lunch and put his blood pressure pill in his pocket along with his lorazepam. He started to feel weird, so he checked his vitals. He realized that his blood pressure pills were no longer in his pocket, that is when he noticed his blood pressure was normal, but his heart rate was in the 133s. He then believed he was having palpitations/anxiety attack. The patient had CT of the brain, which was negative. Chest x-ray was negative. MRI of the brain was negative. The patient had a similar episode 10 days previous to this and had an echo and a carotid Doppler. The carotid Doppler was negative and the echo showed EF of 50% with no other abnormalities. He was seen by Psychiatry, who started him on clonazepam b.i.d., Zoloft daily, and decreased his lorazepam dose to 0.5 q.4 p.r.n. The patient is feeling much better and ready to discharge home. Vital signs stable. Patient afebrile. He will follow up with primary care in 1 to 2 weeks and his psych doctor in 2 weeks. The patient understands instructions and agrees to plan. Dictated by Catina Heart NP Ronnie Brice MD [facility] /[id number]
== END 2019-01-17 09:57 | disposition home or self-care (01) ==
LOC: ER 13:22 → ERHOLD 16:41 → MED/SURG3 20:38 → IMCU 01-16 13:07 → MED/SURG 01-16 16:48
PROVIDERS: ADMIT Internal Medicine; ATTEND Internal Medicine
DX: G45.9 Transient cerebral ischemic attack, unspecified (principal); F41.1 Generalized anxiety disorder; I10 Essential (primary) hypertension; E11.9 Type 2 diabetes mellitus without complications; E78.5 Hyperlipidemia, unspecified; R94.4 Abnormal results of kidney function studies; Z72.0 Tobacco use; Z79.4 Long term (current) use of insulin; Z79.82 Long term (current) use of aspirin; Z83.3 Family history of diabetes mellitus
CPT/HCPCS: 36415 ×3; 70450; 70551; 71045; 80048; 80053; 80061; 82550 ×2; 82553 ×2; 82948 ×2; 83036; 83880 ×2; 84439; 84443; 84484 ×2; 85025 ×2; 85610; 85730; 87400; 90732; 93005; 97161; 99284; G0378 ×3; J1815; J2060; J7030

== ENCOUNTER 2023-01-08 00:36 | Emergency (ER) | payer BC, OTHER ==
[~2023-01-08] VITALS: Ht 167.6 cm; Wt 89.8 kg
[~2023-01-08 00:36] MED LIST changes: +ATIVAN1 MG PO; +CLONAZEPAM0.5 MG PO; +LORAZEPAM1 MG PO; +ZOLOFT50 MG PO
== END 2023-01-08 01:43 | disposition home or self-care (01) ==
LOC: ER 00:42
DX: F41.0 Panic disorder [episodic paroxysmal anxiety] (principal); I10 Essential (primary) hypertension; E11.9 Type 2 diabetes mellitus without complications; Z79.4 Long term (current) use of insulin; Z79.84 Long term (current) use of oral hypoglycemic drugs; Z79.899 Other long term (current) drug therapy
CPT/HCPCS: 93005; 99282

== ENCOUNTER 2025-02-13 23:54 | Emergency (ER) | payer BC, OTHER ==
[~2025-02-13] VITALS: Ht 172.7 cm; Wt 88.5 kg
[2025-02-14 00:11] VITALS: TEMP 99
[2025-02-14 00:50] VITALS: PULSE 66; RESP 16; O2SAT 98
== END 2025-02-14 02:13 | disposition home or self-care (01) ==
LOC: ER 23:59
DX: F41.0 Panic disorder [episodic paroxysmal anxiety] (principal); I10 Essential (primary) hypertension; E11.9 Type 2 diabetes mellitus without complications; Z86.73 Personal history of transient ischemic attack (TIA), and cerebral infarction without residual deficits; F17.210 Nicotine dependence, cigarettes, uncomplicated
CPT/HCPCS: 93005; 99282

== ENCOUNTER → 2025-06-10 | Outpatient (REF) | payer OTHER | LOC: CT 15:44 | PROVIDERS: ATTEND Family Medicine | DX: Z12.2 Encounter for screening for malignant neoplasm of respiratory organs (principal); Z72.0 Tobacco use | CPT/HCPCS: 71250 ==